=== PATIENT | female | born 1980 | race African-American/Black ===

== ENCOUNTER 2022-03-20 14:07 | Inpatient (IN) | payer MEDICARE, MEDICAID, SELFPAY ==
[2022-03-20 14:15] VITALS: BP 100/70; PULSE 70; O2SAT 100
--- NOTE | 2022-03-20 14:18 | ECG_ITS ---
Test Reason : weakness Blood Pressure : / mmHG Vent. Rate : 085 BPM Atrial Rate : 085 BPM P-R Int : 140 ms QRS Dur : 084 ms QT Int : 368 ms P-R-T Axes : 027 007 002 degrees QTc Int : 437 ms Normal sinus rhythm Normal ECG No previous ECGs available Referred By: Generic ED Physician Electronically Signed By:DYLLAN TAYLOR
[2022-03-20 14:23] VITALS: BP 126/71; PULSE 86; RESP 18; TEMP 36.6; O2SAT 100; BMI 59.5
[2022-03-20 14:38] LABS: Glucose, Whole Blood 108 mg/dL (60-115)
[2022-03-20 14:40] LABS: Basophils Percent Auto 0.5 % (0-2); Eosinophils Absolute Auto 0.1 X10*3/uL (0.0-0.4); Eosinophils Percent Auto 2.2 % (0-4); Hematocrit 36.1 % (37.0-47.0); Hemoglobin 11.4 g/dl (12.0-16.0); Imm Gran Abs Auto 0.02 X10*3/uL (0.00-0.03); Imm Gran Pct Auto 0.4 % (0.0-0.4); Lymphocytes Absolute Auto 2.1 X10*3/uL (1.2-4.9); Lymphocytes Percent Auto 38.8 % (20-40); MANUAL DIFF FLAG NO; Mean Corpuscular HGB Conc 31.6 g/dl (31.0-35.0); Mean Corpuscular Hemoglobin 26.5 pg (27.0-33.0); Mean Corpuscular Volume 83.8 fL (80.0-98.0); Mean Platelet Volume 9.8 fL (9.4-12.3); Monocytes Absolute Auto 0.7 X10*3/uL (0.1-1.2); Monocytes Percent Auto 12.6 % (2-11); Neutrophils Absolute Auto 2.5 x10*3/uL (2.0-8.3); Neutrophils Percent Auto 45.5 % (45-73); Platelet Count 250 X10*3/uL (160-400); Red Blood Count 4.31 X10*6/uL (4.20-5.50); White Blood Count 5.5 X10*3/uL (4.8-10.8)
[2022-03-20 14:52] LABS: COVID-19 Test Negative (Negative)
[2022-03-20 15:08] LABS: Ethanol < 10 mg/dL
[2022-03-20 15:11] LABS: Alanine Aminotransferase 23 U/L (0-31); Albumin Level 4.1 g/dL (3.5-5.0); Alkaline Phosphatase 63 U/L (39-117); Anion Gap 13 (12-20); Aspartate Amino Transferase 19 U/L (5-31); Bilirubin Direct < 0.2 mg/dL (0.0-0.5); Bilirubin Total 0.2 mg/dL (0.0-1.0); Blood Urea Nitrogen 10 mg/dL (9-16); Calcium 8.8 mg/dL (8.4-10.2); Carbon Dioxide 26 mmol/L (22-29); Chloride 105 mmol/L (96-108); Creatinine Clr Calc Pharmacy 105.1; Estimated Glomerular Filt Rate 50; Glucose Random 94 mg/dL (60-115); Potassium 4.2 mmol/L (3.3-5.1); Sodium 140 mmol/L (135-145)
[2022-03-20 15:14] LABS: Troponin-I High Sensitivity < 3.5 ng/L (<3.5-17.0)
--- NOTE | 2022-03-20 16:43 | ED_ITS ---
HPI - General Adult General Chief complaint: General Medical Stated complaint: weakness and dizziness Time Seen by Provider: 03/20/22 16:41 Source: patient and EMS Mode of arrival: EMS Limitations: other (patient acutely psychotic) History of Present Illness HPI narrative: 42-year-old female unclear medical history presents to the emergency department via ems with bizarre affect, telling staff members that she is no longer a psych patient and she wants them to close her case. Initially patient was placed in the waiting room, she ran outside, refusing to come in, she was acutely psychotic so I spoke to this patient convinced her to come inside. 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 She reports that she has infection in her vagina and has had multiple sexual partners, she is concerned for STDs. Warts she was recently at a group home however there is too much structure at that facility so she left. Yesterday patient was at [facility] and was very aggressive and it took 12 staff members to help calmed patient an escort her out of the facility. According to EMS she is very well known for psychiatric emergencies, violent behaviors. Patient reports that she is not on med compliant and has not been taking her medications because she does not like the way the medications of made her feel. She reports palpitations, dizziness and chest discomfort. She tells me she is homeless and has been outside for long periods of time. Denies visual, auditory and tactile hallucinations. Denies SI and HI. Unable to obtain a clear review of systems as patient is acutely psychotic and is going on tangents throughout my history taking. Immediately patient was placed on a Section 12 due to erratically behavior, acute psychosis. Radiation: non-radiation Severity: moderate Quality: stabbing Pain Consistency: constant Relieving factors: none Exacerbating factors: none Associated symptoms: malaise and weakness Related Data Home Medications Medication Instructions Recorded Confirmed No Known Home Meds 03/20/22 03/20/22 Allergies Allergy/AdvReac Type Severity Reaction Status Date / Time No Known Allergies Allergy Verified 03/20/22 14:23 Review of Systems Review of Systems: Constitutional : No Weight loss, No Fever, No Chills, + Fatigue, + Malaise ENT/Mouth : No sore throat, No Rhinorrhea Eyes: No Eye Pain, No Swelling, No Redness Cardiovascular : + Chest Pain, No SOB, No Dyspnea on Exertion, No Orthopnea, No Edema, No Palpitations Respiratory : No Cough, No Sputum, No Wheezing Gastrointestinal : No Nausea, No Vomiting, No Diarrhea, No Constipation, No abdominal Pain, No Hematochezia, No Melena Genitourinary : No Dysuria, No Urinary Frequency, No Hematuria, Musculoskeletal : No joint pain, No Myalgias, No Joint Swelling Skin : No Skin Lesions, No rash Neuro : + Weakness, No Numbness, No Dizziness, No Headache Psych : No Anxiety/Panic, No Depression All other systems reviewed and are negative Yes all other systems are reviewed and are negative [facility] Past Medical History Attestation statement: The following information was validated with the patient. Source: old records reviewed and nursing notes reviewed Social History Social History Patient Tobacco Use Status: Never used Tobacco Use of substances other than those prescribed or required for medical reasons: No Advance Directives: No Advance Directives Information Provided: No Physical Exam ED Vital Signs: Vital Signs - 24 hr 03/20/22 14:23 Temperature 97.9 F Pulse Rate 86 Respiratory Rate 18 Blood Pressure 126/71 Pulse Oximetry 100 Oxygen Delivery Method Room Air BMI result Body Mass Index 59.5 VSS Appearance: Alert.? Oriented X3.? No acute distress. Bizzare behaviors/ affect, speaking rapidly and not making sense Head: Normocephalic, atraumatic, no step-offs or deformities Eyes: Pupils equal, round and reactive to light.? ENT: Pharynx normal.? Neck: Normal inspection.? Neck supple.? CVS: Normal heart rate and rhythm.? Pulses normal.? Respiratory: No respiratory distress.? Breath sounds normal.? Abdomen: Soft and nontender.? Skin: Skin warm and dry.? Normal skin color.? Normal skin turgor.? Extremities: No lower extremity edema.? No calf ttp, negative triston. 5/5 strength to bilateral upper and lower extremities Neuro: Oriented X 3.? No motor deficit.? No sensory deficit. CN 2-12 intact Course Reevaluation(s) Reevaluation #1: Patient requesting prophylaxis treatment for gonorrhea and chlamydia. Educated her on full panel STD testing. CBC within normal limits. Chemistry with no acute findings. Magnesium within normal limits. Troponin negative x2, EKG nonischemic unlikely ACS. UA without infection. Urine toxicology negative. Ethanol negative. COVID negative. Time: 17:59 Reevaluation #2: At this time patient will be placed in physician observation to allow more time for evaluation by the behavioral health team. At time observation was started patient, cooperative no acute distress. Will continue to monitor. Time: 00:12 Medical Decision Making MDM Narrative Medical decision making narrative: 1640 42 yo f presents w/ acute psychosis, non med compliant PE significant for patient being acutely psychotic, speaking rapidly in going on tangents. Plan at this time is medical clearance and evaluation by the behavioral health team. Medical Records Medical records reviewed: Yes I reviewed the patient's medical records. Lab Data Lab results reviewed: Yes I reviewed the patient's lab results. Result diagrams: 03/20/22 14:34 03/20/22 14:34 Labs: Lab Results 03/20/22 03/20/22 03/20/22 Range/Units 14:28 14:33 14:34 WBC 5.5 (4.8-10.8) X10*3/uL RBC 4.31 (4.20-5.50) X10*6/uL Hgb 11.4 L (12.0-16.0) g/dl Hct 36.1 L (37.0-47.0) % MCV 83.8 (80.0-98.0) fL MCH 26.5 L (27.0-33.0) pg MCHC 31.6 (31.0-35.0) g/dl RDW 16.0 (11.0-16.0) % Plt Count 250 (160-400) X10*3/uL MPV 9.8 (9.4-12.3) fL Immature Gran % (Auto) 0.4 (0.0-0.4) % Neut % (Auto) 45.5 (45-73) % Lymph % (Auto) 38.8 (20-40) % [place] % (Auto) 12.6 H (2-11) % Eos % (Auto) 2.2 (0-4) % Baso % (Auto) 0.5 (0-2) % Lymph # (Auto) 2.1 (1.2-4.9) X10*3/uL [place] # (Auto) 0.7 (0.1-1.2) X10*3/uL Eos # (Auto) 0.1 (0.0-0.4) X10*3/uL Baso # (Auto) 0.0 (0.0-0.2) X10*3/uL Abs Immat Gran (auto) 0.02 (0.00-0.03) X10*3/uL Absolute Neuts (auto) 2.5 (2.0-8.3) x10*3/uL Absolute Nucleated RBC 0.000 (0.0-0.012) X10*3/uL Nucleated RBC % (auto) 0.0 (0.0-0.2) /100WBC Sodium (135-145) mmol/L Potassium (3.3-5.1) mmol/L Chloride (96-108) mmol/L Carbon Dioxide (22-29) mmol/L Anion Gap (12-20) BUN (9-16) mg/dL Creatinine (0.5-1.4) mg/dL Estim Creat Clear Calc Estimated GFR POC Glucose 108 (60-115) mg/dL Random Glucose (60-115) mg/dL Calcium (8.4-10.2) mg/dL Magnesium (1.6-2.6) mg/dL Total Bilirubin (0.0-1.0) mg/dL Direct Bilirubin (0.0-0.5) mg/dL AST (5-31) U/L ALT (0-31) U/L Alkaline Phosphatase (39-117) U/L Total Creatine Kinase (26-140) U/L Troponin I High Sens (<3.5-17.0) ng/L Total Protein (6.5-8.0) g/dL Albumin (3.5-5.0) g/dL Urine Color Urine Appearance Urine pH (5.0-8.0) Ur Specific [place] (1.005-1.025) Urine Protein (NEG-TRACE) MG/DL Urine Glucose (UA) (NEG) MG/DL Urine Ketones (NEG) MG/DL Urine Blood (NEG) Urine Nitrite (NEG) Ur Leukocyte Esterase (NEG) Urine Test (NEGATIVE) Urine Opiates Screen (Not Detect) Urine Fentanyl Screen (Not Detect) Ur Barbiturates Screen (Not Detect) Ur Phencyclidine Scrn (Not Detect) Ur Amphetamines Screen (Not Detect) U Benzodiazepines Scrn (Not Detect) Urine Cocaine Screen (Not Detect) U Marijuana (THC) Screen (Not Detect) Ethyl Alcohol mg/dL COVID-19 (DAE) Negative (Negative) COVID-19 Clin Com See Note 03/20/22 03/20/22 03/20/22 Range/Units 14:34 14:34 14:34 WBC (4.8-10.8) X10*3/uL RBC (4.20-5.50) X10*6/uL Hgb (12.0-16.0) g/dl Hct (37.0-47.0) % MCV (80.0-98.0) fL MCH (27.0-33.0) pg MCHC (31.0-35.0) g/dl RDW (11.0-16.0) % Plt Count (160-400) X10*3/uL MPV (9.4-12.3) fL Immature Gran % (Auto) (0.0-0.4) % Neut % (Auto) (45-73) % Lymph % (Auto) (20-40) % [place] % (Auto) (2-11) % Eos % (Auto) (0-4) % Baso % (Auto) (0-2) % Lymph # (Auto) (1.2-4.9) X10*3/uL [place] # (Auto) (0.1-1.2) X10*3/uL Eos # (Auto) (0.0-0.4) X10*3/uL Baso # (Auto) (0.0-0.2) X10*3/uL Abs Immat Gran (auto) (0.00-0.03) X10*3/uL Absolute Neuts (auto) (2.0-8.3) x10*3/uL Absolute Nucleated RBC (0.0-0.012) X10*3/uL Nucleated RBC % (auto) (0.0-0.2) /100WBC Sodium 140 (135-145) mmol/L Potassium 4.2 (3.3-5.1) mmol/L Chloride 105 (96-108) mmol/L Carbon Dioxide 26 (22-29) mmol/L Anion Gap 13 (12-20) BUN 10 (9-16) mg/dL Creatinine 1.19 (0.5-1.4) mg/dL Estim Creat Clear Calc 105.1 Estimated GFR 50 POC Glucose (60-115) mg/dL Random Glucose 94 (60-115) mg/dL Calcium 8.8 (8.4-10.2) mg/dL Magnesium (1.6-2.6) mg/dL Total Bilirubin 0.2 (0.0-1.0) mg/dL Direct Bilirubin < 0.2 (0.0-0.5) mg/dL AST 19 (5-31) U/L ALT 23 (0-31) U/L Alkaline Phosphatase 63 (39-117) U/L Total Creatine Kinase (26-140) U/L Troponin I High Sens < 3.5 (<3.5-17.0) ng/L Total Protein 7.0 (6.5-8.0) g/dL Albumin 4.1 (3.5-5.0) g/dL Urine Color Urine Appearance Urine pH (5.0-8.0) Ur Specific [place] (1.005-1.025) Urine Protein (NEG-TRACE) MG/DL Urine Glucose (UA) (NEG) MG/DL Urine Ketones (NEG) MG/DL Urine Blood (NEG) Urine Nitrite (NEG) Ur Leukocyte Esterase (NEG) Urine Test (NEGATIVE) Urine Opiates Screen (Not Detect) Urine Fentanyl Screen (Not Detect) Ur Barbiturates Screen (Not Detect) Ur Phencyclidine Scrn (Not Detect) Ur Amphetamines Screen (Not Detect) U Benzodiazepines Scrn (Not Detect) Urine Cocaine Screen (Not Detect) U Marijuana (THC) Screen (Not Detect) Ethyl Alcohol < 10 mg/dL COVID-19 (DAE) (Negative) COVID-19 Clin Com 03/20/22 03/20/22 03/20/22 Range/Units 17:00 17:00 17:00 WBC (4.8-10.8) X10*3/uL RBC (4.20-5.50) X10*6/uL Hgb (12.0-16.0) g/dl Hct (37.0-47.0) % MCV (80.0-98.0) fL MCH (27.0-33.0) pg MCHC (31.0-35.0) g/dl RDW (11.0-16.0) % Plt Count (160-400) X10*3/uL MPV (9.4-12.3) fL Immature Gran % (Auto) (0.0-0.4) % Neut % (Auto) (45-73) % Lymph % (Auto) (20-40) % [place] % (Auto) (2-11) % Eos % (Auto) (0-4) % Baso % (Auto) (0-2) % Lymph # (Auto) (1.2-4.9) X10*3/uL [place] # (Auto) (0.1-1.2) X10*3/uL Eos # (Auto) (0.0-0.4) X10*3/uL Baso # (Auto) (0.0-0.2) X10*3/uL Abs Immat Gran (auto) (0.00-0.03) X10*3/uL Absolute Neuts (auto) (2.0-8.3) x10*3/uL Absolute Nucleated RBC (0.0-0.012) X10*3/uL Nucleated RBC % (auto) (0.0-0.2) /100WBC Sodium (135-145) mmol/L Potassium (3.3-5.1) mmol/L Chloride (96-108) mmol/L Carbon Dioxide (22-29) mmol/L Anion Gap (12-20) BUN (9-16) mg/dL Creatinine (0.5-1.4) mg/dL Estim Creat Clear Calc Estimated GFR POC Glucose (60-115) mg/dL Random Glucose (60-115) mg/dL Calcium (8.4-10.2) mg/dL Magnesium (1.6-2.6) mg/dL Total Bilirubin (0.0-1.0) mg/dL Direct Bilirubin (0.0-0.5) mg/dL AST (5-31) U/L ALT (0-31) U/L Alkaline Phosphatase (39-117) U/L Total Creatine Kinase (26-140) U/L Troponin I High Sens (<3.5-17.0) ng/L Total Protein (6.5-8.0) g/dL Albumin (3.5-5.0) g/dL Urine Color YELLOW Urine Appearance CLEAR Urine pH 5.5 (5.0-8.0) Ur Specific [place] >= 1.030 H (1.005-1.025) Urine Protein NEG (NEG-TRACE) MG/DL Urine Glucose (UA) NEG (NEG) MG/DL Urine Ketones 5 (NEG) MG/DL Urine Blood NEG (NEG) Urine Nitrite NEG (NEG) Ur Leukocyte Esterase NEG (NEG) Urine Test NEGATIVE (NEGATIVE) Urine Opiates Screen Not Detected (Not Detect) Urine Fentanyl Screen Not Detected (Not Detect) Ur Barbiturates Screen Not Detected (Not Detect) Ur Phencyclidine Scrn Not Detected (Not Detect) Ur Amphetamines Screen Not Detected (Not Detect) U Benzodiazepines Scrn Not Detected (Not Detect) Urine Cocaine Screen Not Detected (Not Detect) U Marijuana (THC) Screen Not Detected (Not Detect) Ethyl Alcohol mg/dL COVID-19 (DAE) (Negative) COVID-19 Clin Com 03/20/22 03/20/22 03/20/22 Range/Units 17:07 17:07 17:07 WBC (4.8-10.8) X10*3/uL RBC (4.20-5.50) X10*6/uL Hgb (12.0-16.0) g/dl Hct (37.0-47.0) % MCV (80.0-98.0) fL MCH (27.0-33.0) pg MCHC (31.0-35.0) g/dl RDW (11.0-16.0) % Plt Count (160-400) X10*3/uL MPV (9.4-12.3) fL Immature Gran % (Auto) (0.0-0.4) % Neut % (Auto) (45-73) % Lymph % (Auto) (20-40) % [place] % (Auto) (2-11) % Eos % (Auto) (0-4) % Baso % (Auto) (0-2) % Lymph # (Auto) (1.2-4.9) X10*3/uL [place] # (Auto) (0.1-1.2) X10*3/uL Eos # (Auto) (0.0-0.4) X10*3/uL Baso # (Auto) (0.0-0.2) X10*3/uL Abs Immat Gran (auto) (0.00-0.03) X10*3/uL Absolute Neuts (auto) (2.0-8.3) x10*3/uL Absolute Nucleated RBC (0.0-0.012) X10*3/uL Nucleated RBC % (auto) (0.0-0.2) /100WBC Sodium (135-145) mmol/L Potassium (3.3-5.1) mmol/L Chloride (96-108) mmol/L Carbon Dioxide (22-29) mmol/L Anion Gap (12-20) BUN (9-16) mg/dL Creatinine (0.5-1.4) mg/dL Estim Creat Clear Calc Estimated GFR POC Glucose (60-115) mg/dL Random Glucose (60-115) mg/dL Calcium (8.4-10.2) mg/dL Magnesium 2.1 (1.6-2.6) mg/dL Total Bilirubin (0.0-1.0) mg/dL Direct Bilirubin (0.0-0.5) mg/dL AST (5-31) U/L ALT (0-31) U/L Alkaline Phosphatase (39-117) U/L Total Creatine Kinase 221 H (26-140) U/L Troponin I High Sens < 3.5 (<3.5-17.0) ng/L Total Protein (6.5-8.0) g/dL Albumin (3.5-5.0) g/dL Urine Color Urine Appearance Urine pH (5.0-8.0) Ur Specific [place] (1.005-1.025) Urine Protein (NEG-TRACE) MG/DL Urine Glucose (UA) (NEG) MG/DL Urine Ketones (NEG) MG/DL Urine Blood (NEG) Urine Nitrite (NEG) Ur Leukocyte Esterase (NEG) Urine Test (NEGATIVE) Urine Opiates Screen (Not Detect) Urine Fentanyl Screen (Not Detect) Ur Barbiturates Screen (Not Detect) Ur Phencyclidine Scrn (Not Detect) Ur Amphetamines Screen (Not Detect) U Benzodiazepines Scrn (Not Detect) Urine Cocaine Screen (Not Detect) U Marijuana (THC) Screen (Not Detect) Ethyl Alcohol < 10 mg/dL COVID-19 (DAE) (Negative) COVID-19 Clin Com Critical Care Time Critical Care Time Critical Care Time: No Discharge Plan Discharge Clinical Impression: Psychosis Patient Disposition: Still a Patient Prescriptions: No Action No Known Home Meds
[2022-03-20 17:09] LABS: Appearance Urine CLEAR; Color Urine YELLOW; Glucose Urine UA NEG (NEG); Leukocyte Esterase Urine NEG (NEG); Nitrite Urine NEG (NEG); PH 5.5 (5.0-8.0); Specific Gravity - Urine >= 1.030 (1.005-1.025); Urine Blood NEG (NEG); Urine Ketones 5 MG/DL (NEG); Urine Protein NEG (NEG-TRACE)
[2022-03-20 17:10] LABS: UPreg QC Valid YES; Urine Pregnancy NEGATIVE (NEGATIVE)
[2022-03-20] MEDS: OLANZapine 10 MG TABLET PO (17:13)
--- NOTE | 2022-03-20 17:14 | PHA.MEDREC ---
NO KNOWN MEDICATIONS. PATIENT IS NOT COOPERATIVE AT MOMENT, RN QUESTIONED PATIENT IF THERE IS A PHARMACY WE COULD CALL HAVE NOT GOTTEN ANY INFO Pharmacy Consult ? Medication Reconciliation Pharmacy has completed the medication reconciliation.
[2022-03-20 17:17] LABS: Amphetamine Screen Urine Not Detected (Not Detect); Barbiturates, Urine Not Detected (Not Detect); Benzodiazepines Screen Urine Not Detected (Not Detect); Cannabinoid Screen Urine Not Detected (Not Detect); Cocaine Screen Urine Not Detected (Not Detect); Fentanyl, urine Not Detected (Not Detect); Opiate Screen Urine Not Detected (Not Detect); Phencyclidine Screen Urine Not Detected (Not Detect)
[2022-03-20] MEDS: cefTRIAXone sodium 500 MG, Lidocaine HCl 1 % MPF 1 ML IM (17:28)
[2022-03-20 17:35] LABS: Ethanol < 10 mg/dL
[2022-03-20 17:37] LABS: Magnesium 2.1 mg/dL (1.6-2.6)
[2022-03-20 17:43] LABS: Troponin-I High Sensitivity < 3.5 ng/L (<3.5-17.0)
--- NOTE | 2022-03-20 18:02 | PC.NURSE ---
PT ARRIVES APPEARING DISHEVELED, STATES SHE HAS BEEN HOMELESS FOR 2 YEARS. HYPERVERBAL, RESPONDING TO INTERNAL STIMULI, EASILY REDIRECTED. STATES SHE HAS NOT TAKEN ANY MEDICATIONS IN YRS. STATES DISTANT HX OF SELF HARM, NO CURRENT SI/HI. AGREEABLE TO ALL INTERVENTIONS.
--- NOTE | 2022-03-20 18:27 | PC.NURSE ---
[facility] CONTACTED, REFERRAL FORM COMPLETED
[2022-03-20] MEDS: diphenhydrAMINE HCL 25 MG TABLET 50 MG PO (18:40)
--- NOTE | 2022-03-20 23:48 | PC.NURSE ---
PATIENT REFUSED CHEST X-RAY. PATIENT STATED MONDAY MORNING. WILL ASK AGAIN IN THE MORNING.
--- NOTE | 2022-03-21 01:30 | PC.NURSE ---
Patient is in bed appears sleeping, no distress observed/reported at this time, patient was assessed by [facility], patient engaged well, disposition pending, jose juan follow up with [facility] in the morning, currently not on any medication, patient is being treated for STD prophylactically, behavior appropriate and non concerning, will continue to monitor.
--- NOTE | 2022-03-21 01:44 | PC.NURSE ---
Patient refused for X-ray times 2, patient reported she will do it in the morning, X-ray department made aware.
[2022-03-21 06:48] VITALS: BP 142/70; PULSE 80; RESP 16; TEMP 37.3; O2SAT 100
--- NOTE | 2022-03-21 07:19 | PC.NURSE ---
patient appears to remain asleep at present respirations are even and unlabored patient appears in no distress.
--- NOTE | 2022-03-21 11:32 | PC.NURSE ---
patients mother called, patient gave consent for t/w to talk to mother but declined to talk to mother herself. patients mother asked again, maricarmenless handset ws brought to room and client declined to engage with mother.
--- NOTE | 2022-03-21 16:26 | PC.NURSE ---
pt sleeping respirations even and unlabored.
[2022-03-21 17:56] VITALS: BP 144/86; PULSE 68; RESP 16; TEMP 36.9; O2SAT 100
[2022-03-22 03:01] VITALS: BP 150/86; PULSE 73; RESP 17; TEMP 36.4; O2SAT 100
--- NOTE | 2022-03-22 06:25 | PC.NURSE ---
Patient slept through the night, no distress observed/reported, behavior non concerning at this time, disposition per [facility] is section 12 inpatient bed search, VSS, appetite adequate, mood expansive, will continue to monitor.
--- NOTE | 2022-03-22 07:22 | PC.NURSE ---
patient appears to remain asleep at present respirations are even and unlabored patient appears in no distress
[2022-03-22 08:51] VITALS: BP 126/56; PULSE 82; RESP 13; TEMP 37.3; O2SAT 100
[2022-03-22 11:19] LABS: IDNOW Serial# 55D5AD1C
[2022-03-22 11:20] LABS: COVID-19 Test Negative (Negative)
[2022-03-22 16:01] VITALS: BP 135/72; PULSE 72; RESP 16; TEMP 36.4; O2SAT 100
[2022-03-22 16:46] VITALS: BP 135/72; PULSE 72; RESP 16; TEMP 36.4; O2SAT 100
[2022-03-22 18:00] VITALS: BP 132/78; PULSE 89; RESP 16; TEMP 36.6; O2SAT 99
[2022-03-22] MEDS: HaloperidoL 5 MG TABLET PO ×3 (18:13→20:07)
[2022-03-22] MEDS: Benztropine Mesylate 0.5 MG TABLET PO ×2 (18:13→18:19)
[2022-03-22] MEDS: Milk of Magnesia 30 ML ORAL.SUSP PO (20:17)
--- NOTE | 2022-03-22 21:44 | PC.ADMIT ---
Pt is a 42 year old -[place] woman admitted on CV for delusion and disorganized thoughts. Pt is alert and oriented X3, VSS, covid negative, Tox screen negative. Pt states that she is planning to go back to school to become a doctor, a nurse a physician executive marketing assistant. Pt appears disheveled, poor eye contact, calm and cooperative, able to answer questions. Speech is pressured, with high tone. Insight, judgment and impulses are poor, flat affect Pt reports Auditory hallucinations of noises. Pt denies VH, Denies SI and HI. Pt describes mood as bright and happy. denies depression and anxiety. Pt reports that she arrived to the ED because she was feeling overwhelmed and dizzy . Pt reports she wants to talk to her provider and see if she can get help getting into a program. Pt requests for OBGYN consult. Provider made aware, admission orders obtained.
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
[2022-03-22] MEDS: traZODone HCL 50 MG TABLET PO (22:36)
[2022-03-23] MEDS: hydrOXYzine HCL 25 MG TABLET PO (00:25)
[2022-03-23] MEDS: traZODone HCL 50 MG TABLET PO (00:25)
[2022-03-23] MEDS: OLANZapine 5 MG TABLET PO ×2 (00:25→11:10)
[2022-03-23] MEDS: LORazepam 1 MG TABLET 2 MG PO (02:34)
[2022-03-23] MEDS: diphenhydrAMINE HCL 25 MG TABLET 50 MG PO (02:34)
[2022-03-23] MEDS: HaloperidoL 5 MG TABLET PO (02:34)
[2022-03-23 06:00] VITALS: BP 114/57; PULSE 86; TEMP 37; O2SAT 98
[2022-03-23 09:10] LABS: Estimated Average Glucose 117 mg/dL; Hemoglobin A1c % 5.7 %
[2022-03-23 09:33] LABS: Cholesterol 184 mg/dL; HDL Cholesterol 63 mg/dL; LDL Cholesterol Calculated 103 mg/dl; Triglycerides 91 mg/dL
--- NOTE | 2022-03-23 10:45 | P.PNPSI_ITS ---
Subjective Subjective Date of Service: 03/23/22 Reason For Visit: psychotic Subjective Notes: Sierra Warning Interim History: Patient lying in bed with eyes closed. Calm and pleasant as communications writer approached. Patient says that she is no longer hearing voices with the medication and she says she slept well last night. Project Development Leader could not elicit any paranoid thinking however she is made some bizarre statements to staff. She does not want to take Haldol but agrees to take Zyprexa. She is not sure of the past dose she was (communications writer cannot find it in prescription hx). She said she would like it mostly in the evening time since it makes her tired. She denies any SI or HI. She says she is on an antibiotic for a vaginal infection, which she is. Mental Status Exam Mental Status Exam Narrative: Pt is alert and oriented; behavior is mostly cooperative and calm; patient is not in distress, lying in bed with eyes closed; dressed in hospital attire, malodorous; mood is described as good; odd affect, keeping eyes close while talking; no contact appropriate; Speech is normal rate, volume and prosody and not pressured; no psychomotor agitation/retardation present; thought process is goal directed but concrete; Thought content w/out SI/HI; denies AVH; Patients insight and judgment are impaired. Diagnostics Vital Signs (24Hr): Vital Signs - 24 hr 03/22/22 16:01 03/22/22 16:46 03/22/22 18:00 Temperature 97.6 F 97.6 F 97.8 F Pulse Rate 72 72 89 Respiratory Rate 16 16 16 Blood Pressure 135/72 135/72 132/78 Pulse Oximetry 100 100 99 Oxygen Delivery Method Room Air Room Air Room Air BMI result Body Mass Index 59.5 Labs Results: 03/20/22 14:34 03/20/22 14:34 Labs: Laboratory Results - last 48 hr 03/22/22 03/23/22 03/23/22 10:53 08:09 08:09 Estimat Average Glucose 117 Hemoglobin A1c % 5.7 Triglycerides 91 Cholesterol 184 LDL Cholesterol, Calc 103 HDL Cholesterol 63 COVID-19 (DAE) Negative COVID-19 Clin Com See Note Medications Medications Current Medications Acetaminophen (Acetaminophen 325 Mg Tablet) 650 mg PO Q6H PRN PRN Reason: Headache/Pain Mild Scale (1-3) Al Hydroxide/Mg Hydroxide (Magnesium Hydrox/Alum Hydrox 30 Ml Oral.Susp) 30 ml PO Q6H PRN PRN Reason: Heartburn/Nausea Benztropine Mesylate (Benztropine Mesylate 0.5 Mg Tablet) 0.5 mg PO TID PRN PRN Reason: dystonia/EPS Last Admin: 03/22/22 18:19 Dose: 0.5 mg Diphenhydramine HCl (Diphenhydramine Hcl 25 Mg Tablet) 50 mg PO Q4H PRN PRN Reason: agitation Last Admin: 03/23/22 02:34 Dose: 50 mg Doxycycline Hyclate (Doxycycline Hyclate 100 Mg Tablet) 100 mg PO BID GENOVEVA Last Admin: 03/22/22 20:07 Dose: 100 mg Haloperidol (Haloperidol 5 Mg Tablet) 5 mg PO Q4H PRN PRN Reason: agitation Last Admin: 03/23/22 02:34 Dose: 5 mg Hydroxyzine HCl (Hydroxyzine Hcl 25 Mg Tablet) 25 mg PO Q6H PRN PRN Reason: Anxiety Last Admin: 03/23/22 00:25 Dose: 25 mg Ibuprofen (Ibuprofen 600 Mg Tablet) 600 mg PO Q6H PRN PRN Reason: mod-severe pain Lorazepam (Lorazepam 1 Mg Tablet) 2 mg PO Q4H PRN PRN Reason: agitation Last Admin: 03/23/22 02:34 Dose: 2 mg Magnesium Hydroxide (Milk Of Magnesia 30 Ml Oral.Susp) 30 ml PO DAILY PRN PRN Reason: Constipation Last Admin: 03/22/22 20:17 Dose: 30 ml Nicotine Polacrilex (Nicotine Polacrilex 2 Mg Gum) 4 mg BUCCAL Q2H PRN PRN Reason: Nicotine Cravings Olanzapine (Olanzapine 5 Mg Tablet) 5 mg PO BID PRN PRN Reason: anxiety, psychosis Last Admin: 03/23/22 00:25 Dose: 5 mg Olanzapine (Olanzapine 5 Mg Tablet) 5 mg PO ONCE ONE Stop: 03/23/22 10:42 Olanzapine (Olanzapine 10 Mg Tablet) 10 mg PO BID [place]A Polyethylene Glycol (Polyethylene Glycol 3350 17 Gm Powd.Pack) 17 gm PO BID [place]A Trazodone HCl (Trazodone Hcl 50 Mg Tablet) 50 mg PO BEDTIME PRN PRN Reason: Insomnia Last Admin: 03/23/22 00:25 Dose: 50 mg Allergies Allergies Allergy/AdvReac Type Severity Reaction Status Date / Time No Known Allergies Allergy Verified 03/20/22 14:23 Assessment & Plan Assessment & Plan (1) Schizophrenia, chronic condition: Status: Acute Code(s): F20.9 - Schizophrenia, unspecified Plan Stefania is a 42 y.o. Female who carries a dx of schizophrenia vs. schizoaffective disorder. She presented to [facility] ED on 03/20/2022 with bizarre affect, acutely psychotic i.e. told ED staff that the [place] Gods are out to get her, her legs are infected with HIV, she is using poisoned shampoo that is making her hair fall off, and she has infection in her vagina. She was given doxycycline as prophylaxis for STIs, no testing done in ED. Pt is homeless, recently at [facility].? Per ED note, pt is known to EMS for psychiatric emergencies and aggressive behaviors. She is currently non-adherent on medications, says she does not like how they make her feel.?Hx of multiple psych admissions. 03/23 patient reports that auditory hallucinations have resolved with medications; she says she slept well. She is disorganized, malodorous and does not open her eyes at all while talking, lying in bed most of the day; denies depression SI or HI. Does not seem to be a clear historian however and collateral will help guide treatment Plan: Q15 min safety checks, CV START Zyprexa 10 mg bedtime (gave 1 time dose of 5 mg in the a.m.); will titrate as needed Monitor response to medications. Monitor for safety in the milieu. Discharge on stabilization. Patient seen. Chart reviewed. Discussed with team. Obtain collateral contact info?as needed I spent minutes with the patient and/or on the patient floor today, greater than?50% of which was spent counseling/coordinating care. Patient educated on: medication risk/benefits Informed Consent: understands and further education needed Reason for contiued inpatient stay Substantial Risk for: rapid decompensation
[2022-03-23 21:15] VITALS: BP 125/73; PULSE 89; TEMP 36.9
[2022-03-23] MEDS: polyethylene glycoL 3350 17 GM POWD.PACK PO (21:16)
--- NOTE | 2022-03-24 10:25 | HO.PSYCHPN ---
Subjective Subjective Date of Service: 03/24/22 Reason For Visit: psychotic Interim History: Patient says she slept well. Patient is pleasant and friendly. Thought process very concrete She does not want to take Zyprexa anymore however because she says it makes her too tired. She said she will take Risperdal instead. Patient reports that auditory hallucinations are gone since take medications in the hospital. She continues to deny any delusional thinking and completely denies having made any bizarre statements recorded on admission. Patient says she used to live in the [facility] with her mom; she thinks she would like to return there and asks if she can be helped to do so. Gave permission to both service writer and professor of social work to call her mom and discuss options. She denies any SI or HI and says she would like to leave the hospital soon, that she is fine and does not need to be on a psychiatric unit. Human Resources Consultant asked about her concerns regarding HIV and she denies that she has any concerns and does not want test. Mental Status Exam Mental Status Exam Narrative: Pt is alert and oriented; behavior is cooperative, friendly and calm; patient is not in distress, sits up in bed , talking with service writer and professor of social work with good eye contact; dressed in hospital attire, good hygiene and showered today; mood is described as good and affect congruent; Speech is normal rate, volume and prosody and not pressured; no psychomotor agitation/retardation present; thought process is goal directed but concrete; Thought content is on discharge; denies any SI or HI; denies AVH; denies any delusional or paranoid thinking and none solicited; Patients insight and judgment are impaired but likely adequate. Diagnostics Vital Signs (24Hr): Vital Signs - 24 hr 03/23/22 21:15 Temperature 98.4 F Pulse Rate 89 Blood Pressure 125/73 BMI result Body Mass Index 59.5 Labs Results: 03/20/22 14:34 03/20/22 14:34 Labs: Laboratory Results - last 48 hr 03/22/22 03/23/22 03/23/22 10:53 08:09 08:09 Estimat Average Glucose 117 Hemoglobin A1c % 5.7 Triglycerides 91 Cholesterol 184 LDL Cholesterol, Calc 103 HDL Cholesterol 63 COVID-19 (DAE) Negative COVID-19 Clin Com See Note Medications Medications Current Medications Acetaminophen (Acetaminophen 325 Mg Tablet) 650 mg PO Q6H PRN PRN Reason: Headache/Pain Mild Scale (1-3) Al Hydroxide/Mg Hydroxide (Magnesium Hydrox/Alum Hydrox 30 Ml Oral.Susp) 30 ml PO Q6H PRN PRN Reason: Heartburn/Nausea Benztropine Mesylate (Benztropine Mesylate 0.5 Mg Tablet) 0.5 mg PO TID PRN PRN Reason: dystonia/EPS Last Admin: 03/22/22 18:19 Dose: 0.5 mg Diphenhydramine HCl (Diphenhydramine Hcl 25 Mg Tablet) 50 mg PO Q4H PRN PRN Reason: agitation Last Admin: 03/23/22 02:34 Dose: 50 mg Doxycycline Hyclate (Doxycycline Hyclate 100 Mg Tablet) 100 mg PO BID [facility] Last Admin: 03/24/22 09:07 Dose: 100 mg Haloperidol (Haloperidol 5 Mg Tablet) 5 mg PO Q4H PRN PRN Reason: agitation Last Admin: 03/23/22 02:34 Dose: 5 mg Hydroxyzine HCl (Hydroxyzine Hcl 25 Mg Tablet) 25 mg PO Q6H PRN PRN Reason: Anxiety Last Admin: 03/23/22 00:25 Dose: 25 mg Ibuprofen (Ibuprofen 600 Mg Tablet) 600 mg PO Q6H PRN PRN Reason: mod-severe pain Lorazepam (Lorazepam 1 Mg Tablet) 2 mg PO Q4H PRN PRN Reason: agitation Last Admin: 03/23/22 02:34 Dose: 2 mg Magnesium Hydroxide (Milk Of Magnesia 30 Ml Oral.Susp) 30 ml PO DAILY PRN PRN Reason: Constipation Last Admin: 03/22/22 20:17 Dose: 30 ml Nicotine Polacrilex (Nicotine Polacrilex 2 Mg Gum) 4 mg BUCCAL Q2H PRN PRN Reason: Nicotine Cravings Olanzapine (Olanzapine 5 Mg Tablet) 5 mg PO BID PRN PRN Reason: anxiety, psychosis Last Admin: 03/23/22 00:25 Dose: 5 mg Olanzapine (Olanzapine 10 Mg Tablet) 10 mg PO BEDTIME [facility]A Last Admin: 03/23/22 21:20 Dose: Not Given Polyethylene Glycol (Polyethylene Glycol 3350 17 Gm Powd.Pack) 17 gm PO BID GENOVEVA Last Admin: 03/24/22 09:10 Dose: Not Given Trazodone HCl (Trazodone Hcl 50 Mg Tablet) 50 mg PO BEDTIME PRN PRN Reason: Insomnia Last Admin: 03/23/22 00:25 Dose: 50 mg Allergies Allergies Allergy/AdvReac Type Severity Reaction Status Date / Time No Known Allergies Allergy Verified 03/20/22 14:23 Assessment & Plan Assessment & Plan (1) Schizophrenia, chronic condition: Status: Acute Code(s): F20.9 - Schizophrenia, unspecified Plan Stefania is a 42 y.o. Female who carries a dx of schizophrenia vs. schizoaffective disorder. She presented to [facility] on 03/20/2022 with bizarre affect, acutely psychotic i.e. told ED staff that the [place] Gods are out to get her, her legs are infected with HIV, she is using poisoned shampoo that is making her hair fall off, and she has infection in her vagina. She was given doxycycline as prophylaxis for STIs, no testing done in ED. Pt is homeless, recently at [facility].? Per ED note, pt is known to EMS for psychiatric emergencies and aggressive behaviors. She is currently non-adherent on medications, says she does not like how they make her feel.?Hx of multiple psych admissions. 03/23 patient reports that auditory hallucinations have resolved with medications; she says she slept well. She is disorganized, malodorous and does not open her eyes at all while talking, lying in bed most of the day; denies depression SI or HI. Does not seem to be a clear historian however and collateral will help guide treatment 03/24 patient reports he is in a good mood, sleeping well and denies any AH; wants Risperdal instead of Zyprexa which she has been on before. Patient is more organized, showered today, sitting up and talking with service writer and professor of social work with good eye contact. Patient does not have insight into her recent behaviors behaviors that resulted in her coming to the emergency room, however on the unit she has been calm, pleasant and polite and and overall appropriate. She says she would like discharge and help getting back to [place] where her mother lives. Patient asked for and signed a 3 day notice, filled out on her own without any problems, including the date. Plan: Q15 min safety checks, Three day notice Start Risperdal 2 mg q.h.s. (patient has been on before and asked for this med now.) Discontinue Zyprexa (does not want) Patient has history of being on metformin however current hemoglobin A1c 5.7 Monitor response to medications. Monitor for safety in the milieu. Discharge on stabilization. Patient seen. Chart reviewed. Discussed with team. Obtain collateral contact info?as needed I spent minutes with the patient and/or on the patient floor today, greater than?50% of which was spent counseling/coordinating care. Patient educated on: diagnosis and medication risk/benefits Informed Consent: understands, does not understand and further education needed Reason for contiued inpatient stay Substantial Risk for: stable for discharge
[2022-03-24 16:20] VITALS: BP 152/81; PULSE 102; TEMP 36.6; O2SAT 98
[2022-03-24] MEDS: risperiDONE 2 MG TABLET PO (20:55)
[2022-03-24] MEDS: polyethylene glycoL 3350 17 GM POWD.PACK PO (20:55)
[2022-03-25 06:00] VITALS: BP 121/78; PULSE 92; RESP 16; TEMP 36.7; O2SAT 98
[2022-03-25] MEDS: polyethylene glycoL 3350 17 GM POWD.PACK PO (09:07)
--- NOTE | 2022-03-25 15:09 | P.PNPSI_ITS ---
Subjective Subjective Date of Service: 03/25/22 Reason For Visit: psychotic Interim History: pt friendly, calm. She says she is in a good mood and that auditory hallucinations remain eliminated. Patient says she slept well last night. She changed her mind and no longer wants to go to [place]. She said she saw an advertisement on TV last night about [place] and wants to go. According to her mother, patient has been traveling around to various locations for years and has been able to navigate and keep herself relatively safe doing so on her own. Patient said that she would like to discharge Monday at which time she will go back to the [facility] and wait for her check; then she will Likely buy a bus ticket. Patient rambles a bit about her time in the [place] and some history and it is little hard to understand. But she remains able to be interrupted and have a goal oriented/linear conversation. Patient Referenced her behavior just prior to this admission she was feeling Lonely and made some sexual remarks to team otr truck driver; she also said she cussed people out. Patient says she does not know why, she was just upset and feeling that way at the time; happens from time to time. Patient does not see this as connected with any psychiatric illness; however she does agree that the medications are helpful for eliminating auditory hallucinations and thus wants to continue Patient said Risperdal as helpful and she wants to continue. She does not have money to order picker scripts for it however. She agrees to convert to long-acting injectable. Shrimp Cleaner discussed history of being on metformin but explained how though her A1c is WNL and she said she was only on metformin in the past to help with weight Loss but it was not effective so she stopped. Mental Status Exam Mental Status Exam Narrative: Pt is alert and oriented; behavior is cooperative, friendly and calm; patient is not in distress; dressed in hospital attire, unkempt hair, but good hygiene; ; mood is described as good and affect congruent, bright; Speech is normal rate, volume and prosody and not pressured; no psychomotor agitation/retardation present; thought process is goal directed; can also be quite circumstantial. Also concrete; Thought content is on traveling, plans for future; denies any SI or HI; denies AVH; denies any delusional or paranoid thinking and none solicited; Patients insight and judgment are impaired but adequate and likely at baseline. Diagnostics Vital Signs (24Hr): Vital Signs - 24 hr 03/24/22 16:20 03/25/22 06:00 Temperature 98 F 98.1 F Pulse Rate 102 H 92 Respiratory Rate 16 Blood Pressure 152/81 H 121/78 Pulse Oximetry 98 98 BMI result Body Mass Index 59.5 Labs Results: 03/20/22 14:34 03/20/22 14:34 Medications Medications Current Medications Acetaminophen (Acetaminophen 325 Mg Tablet) 650 mg PO Q6H PRN PRN Reason: Headache/Pain Mild Scale (1-3) Al Hydroxide/Mg Hydroxide (Magnesium Hydrox/Alum Hydrox 30 Ml Oral.Susp) 30 ml PO Q6H PRN PRN Reason: Heartburn/Nausea Benztropine Mesylate (Benztropine Mesylate 0.5 Mg Tablet) 0.5 mg PO TID PRN PRN Reason: dystonia/EPS Last Admin: 03/22/22 18:19 Dose: 0.5 mg Diphenhydramine HCl (Diphenhydramine Hcl 25 Mg Tablet) 50 mg PO Q4H PRN PRN Reason: agitation Last Admin: 03/23/22 02:34 Dose: 50 mg Doxycycline Hyclate (Doxycycline Hyclate 100 Mg Tablet) 100 mg PO BID [facility] Last Admin: 03/25/22 09:08 Dose: 100 mg Haloperidol (Haloperidol 5 Mg Tablet) 5 mg PO Q4H PRN PRN Reason: agitation Last Admin: 03/23/22 02:34 Dose: 5 mg Hydroxyzine HCl (Hydroxyzine Hcl 25 Mg Tablet) 25 mg PO Q6H PRN PRN Reason: Anxiety Last Admin: 03/23/22 00:25 Dose: 25 mg Ibuprofen (Ibuprofen 600 Mg Tablet) 600 mg PO Q6H PRN PRN Reason: mod-severe pain Lorazepam (Lorazepam 1 Mg Tablet) 2 mg PO Q4H PRN PRN Reason: agitation Last Admin: 03/23/22 02:34 Dose: 2 mg Magnesium Hydroxide (Milk Of Magnesia 30 Ml Oral.Susp) 30 ml PO DAILY PRN PRN Reason: Constipation Last Admin: 03/22/22 20:17 Dose: 30 ml Nicotine Polacrilex (Nicotine Polacrilex 2 Mg Gum) 4 mg BUCCAL Q2H PRN PRN Reason: Nicotine Cravings Polyethylene Glycol (Polyethylene Glycol 3350 17 Gm Powd.Pack) 17 gm PO BID [facility]A Last Admin: 03/25/22 09:07 Dose: 17 gm Risperidone (Risperidone 2 Mg Tablet) 2 mg PO BEDTIME GENOVEVA Last Admin: 03/24/22 20:55 Dose: 2 mg Trazodone HCl (Trazodone Hcl 50 Mg Tablet) 50 mg PO BEDTIME PRN PRN Reason: Insomnia Last Admin: 03/23/22 00:25 Dose: 50 mg Allergies Allergies Allergy/AdvReac Type Severity Reaction Status Date / Time No Known Allergies Allergy Verified 03/20/22 14:23 Assessment & Plan Assessment & Plan (1) Schizophrenia, chronic condition: Status: Acute Code(s): F20.9 - Schizophrenia, unspecified Plan Stefania is a 42 y.o. Female who carries a dx of schizophrenia vs. schizoaffective disorder. She presented to [facility] on 03/20/2022 with bizarre affect, acutely psychotic i.e. told ED staff that the [place] Gods are out to get her, her legs are infected with HIV, she is using poisoned shampoo that is making her hair fall off, and she has infection in her vagina. She was given doxycycline as prophylaxis for STIs, no testing done in ED. Pt is homeless, recently at [facility].? Per ED note, pt is known to EMS for psychiatric emergencies and aggressive behaviors. She is currently non-adherent on medications, says she does not like how they make her feel.?Hx of multiple [facility] admissions. 03/23 patient reports that auditory hallucinations have resolved with medications; she says she slept well. She is disorganized, malodorous and does not open her eyes at all while talking, lying in bed most of the day; denies depression SI or HI. Does not seem to be a clear historian however and collateral will help guide treatment 03/24 patient reports he is in a good mood, sleeping well and denies any AH; wants Risperdal instead of Zyprexa which she has been on before. Patient is more organized, showered today, sitting up and talking with commercial loan underwriter and social studies teacher with good eye contact. Patient does not have insight into her recent behaviors behaviors that resulted in her coming to the emergency room, however on the unit she has been calm, pleasant and polite and and overall appropriate. She says she would like discharge and help getting back to [place] where her mo ther lives. Patient asked for and signed a 3 day notice, filled out on her own without any problems, including the date. 03/25 Remains in good mood, without auditory hallucinations saying they remain resolved. Friendly and polite with appropriate behaviors with peers and staff. Patient agrees to continue with Risperdal and agrees to get a long-acting injectable. Otherwise she would like to discharge Monday with plans to travel. Her mother says this is patient's baseline and that she has been Travel all over the place on her own For years and is able to take care of herself. Patient's plan is to [facility] back [facility] and wait for her disability check; she says she likes the intermediate and people are friendly there. She sometimes talks about wanting to go to nursing school or medical school and asks for literature regarding these interests and her thought process can intermittently gets circumstantial and pressured; however she is interruptible and able to carry on a linear/goal oriented conversation and is overall with organized behavior and speech. Plan: Q15 min safety checks, Three day notice continue Risperdal 2 mg q.h.s. (patient has been on before and asked for this med now.) Likely switch to invega sustenna Discontinue Zyprexa (does not want) Patient has history of being on metformin however current hemoglobin A1c 5.7 Monitor response to medications. Monitor for safety in the milieu. Discharge on stabilization. Patient seen. Chart reviewed. Discussed with team. Obtain collateral contact info?as needed I spent minutes with the patient and/or on the patient floor today, greater than?50% of which was spent counseling/coordinating care. Patient educated on: medication risk/benefits Informed Consent: understands Reason for contiued inpatient stay Substantial Risk for: stable for discharge
[2022-03-25 18:00] VITALS: BP 132/82; PULSE 99; RESP 16; TEMP 36.5; O2SAT 98
[2022-03-25] MEDS: risperiDONE 2 MG TABLET PO (19:38)
[2022-03-26 06:35] VITALS: BP 123/77; PULSE 74; RESP 18; TEMP 36.6; O2SAT 99
[2022-03-26] MEDS: polyethylene glycoL 3350 17 GM POWD.PACK PO (09:31)
[2022-03-26] MEDS: Acetaminophen 325 MG TABLET 650 MG PO (09:33)
--- NOTE | 2022-03-26 16:14 | HO.PSYCHPN ---
Subjective Subjective Date of Service: 03/26/22 Reason For Visit: psychotic Interim History: Patient reports that she is doing well, good mood; AH remains resolved. Patient would like to discharge Monday. At she did not want to take doxycycline and complaining of some nausea but later said it resolved and she took it. Agrees to long-acting injectable. Mental Status Exam Mental Status Exam Narrative: Pt is alert and oriented; behavior is cooperative, friendly and calm; patient is not in distress; dressed in hospital attire, unkempt hair, but good hygiene; ; mood is described as good and affect congruent, bright; Speech is normal rate, volume and prosody and not pressured; no psychomotor agitation/retardation present; thought process is goal directed; can also be quite circumstantial. Also concrete; Thought content is on traveling, plans for future; denies any SI or HI; denies AVH; denies any delusional or paranoid thinking and none solicited; Patients insight and judgment are impaired but adequate and likely at baseline. Diagnostics Vital Signs (24Hr): Vital Signs - 24 hr 03/25/22 18:00 03/26/22 06:35 Temperature 97.7 F 98 F Pulse Rate 99 74 Respiratory Rate 16 18 Blood Pressure 132/82 123/77 Pulse Oximetry 98 99 Oxygen Delivery Method Room Air Room Air BMI result Body Mass Index 59.5 Labs Results: 03/20/22 14:34 03/20/22 14:34 Medications Medications Current Medications Acetaminophen (Acetaminophen 325 Mg Tablet) 650 mg PO Q6H PRN PRN Reason: Headache/Pain Mild Scale (1-3) Last Admin: 03/26/22 09:33 Dose: 650 mg Al Hydroxide/Mg Hydroxide (Magnesium Hydrox/Alum Hydrox 30 Ml Oral.Susp) 30 ml PO Q6H PRN PRN Reason: Heartburn/Nausea Benztropine Mesylate (Benztropine Mesylate 0.5 Mg Tablet) 0.5 mg PO TID PRN PRN Reason: dystonia/EPS Last Admin: 03/22/22 18:19 Dose: 0.5 mg Diphenhydramine HCl (Diphenhydramine Hcl 25 Mg Tablet) 50 mg PO Q4H PRN PRN Reason: agitation Last Admin: 03/23/22 02:34 Dose: 50 mg Doxycycline Hyclate (Doxycycline Hyclate 100 Mg Tablet) 100 mg PO BID GENOVEVA Last Admin: 03/26/22 11:00 Dose: 100 mg Haloperidol (Haloperidol 5 Mg Tablet) 5 mg PO Q4H PRN PRN Reason: agitation Last Admin: 03/23/22 02:34 Dose: 5 mg Hydroxyzine HCl (Hydroxyzine Hcl 25 Mg Tablet) 25 mg PO Q6H PRN PRN Reason: Anxiety Last Admin: 03/23/22 00:25 Dose: 25 mg Ibuprofen (Ibuprofen 600 Mg Tablet) 600 mg PO Q6H PRN PRN Reason: mod-severe pain Lorazepam (Lorazepam 1 Mg Tablet) 2 mg PO Q4H PRN PRN Reason: agitation Last Admin: 03/23/22 02:34 Dose: 2 mg Magnesium Hydroxide (Milk Of Magnesia 30 Ml Oral.Susp) 30 ml PO DAILY PRN PRN Reason: Constipation Last Admin: 03/22/22 20:17 Dose: 30 ml Nicotine Polacrilex (Nicotine Polacrilex 2 Mg Gum) 4 mg BUCCAL Q2H PRN PRN Reason: Nicotine Cravings Paliperidone Palmitate (Paliperidone Palmitate 234 Mg/1.5 Ml Syringe) 234 mg IM Q30D [facility] Polyethylene Glycol (Polyethylene Glycol 3350 17 Gm Powd.Pack) 17 gm PO BID [facility] Last Admin: 03/26/22 09:31 Dose: 17 gm Risperidone (Risperidone 2 Mg Tablet) 2 mg PO BEDTIME [facility] Last Admin: 03/25/22 19:38 Dose: 2 mg Trazodone HCl (Trazodone Hcl 50 Mg Tablet) 50 mg PO BEDTIME PRN PRN Reason: Insomnia Last Admin: 03/23/22 00:25 Dose: 50 mg Allergies Allergies Allergy/AdvReac Type Severity Reaction Status Date / Time No Known Allergies Allergy Verified 03/20/22 14:23 Assessment & Plan Assessment & Plan (1) Schizophrenia, chronic condition: Status: Acute Code(s): F20.9 - Schizophrenia, unspecified Plan Stefania is a 42 y.o. Female who carries a dx of schizophrenia vs. schizoaffective disorder. She presented to [facility] on 03/20/2022 with bizarre affect, acutely psychotic i.e. 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 She was given doxycycline as prophylaxis for STIs, no testing done in ED. Pt is homeless, recently at [facility].? Per ED note, pt is known to EMS for psychiatric emergencies and aggressive behaviors. She is currently non-adherent on medications, says she does not like how they make her feel.?Hx of multiple psych admissions. 03/23 patient reports that auditory hallucinations have resolved with medications; she says she slept well. She is disorganized, malodorous and does not open her eyes at all while talking, lying in bed most of the day; denies depression SI or HI. Does not seem to be a clear historian however and collateral will help guide treatment 03/24 patient reports he is in a good mood, sleeping well and denies any AH; wants Risperdal instead of Zyprexa which she has been on before. Patient is more organized, showered today, sitting up and talking with medical underwriter and geriatric social work professor with good eye contact. Patient does not have insight into her recent behaviors behaviors that resulted in her coming to the emergency room, however on the unit she has been calm, pleasant and polite and and overall appropriate. She says she would like discharge and help getting back to [place] where her mother lives. Patient asked for and signed a 3 day notice, filled out on her own without any problems, including the date. 03/25 Remains in good mood, without auditory hallucinations saying they remain resolved. Friendly and polite with appropriate behaviors with peers and staff. Patient agrees to continue with Risperdal and agrees to get a long-acting injectable. Otherwise she would like to discharge Monday with plans to travel. Her mother says this is patient's baseline and that she has been Travel all over the place on her own For years and is able to take care of herself. Patient's plan is to go back [facility] Monday and wait for her disability check; she says she likes the detention and people are friendly there. She sometimes talks about wanting to go to nursing school or medical school and asks for literature regarding these interests and her thought process can intermittently gets circumstantial and pressured; however she is interruptible and able to carry on a linear/goal oriented conversation and is overall with organized behavior and speech. 03/26 remains in good mood, polite, organized speech and behavior; AH remains resolved Plan: Q15 min safety checks, Three day notice continue Risperdal 2 mg q.h.s. (patient has been on before and asked for this med now.) Likely switch to invega sustenna Discontinue Zyprexa (does not want) Patient has history of being on metformin however current hemoglobin A1c 5.7 Monitor response to medications. Monitor for safety in the milieu. Discharge on stabilization. Patient seen. Chart reviewed. Discussed with team. Obtain collateral contact info?as needed I spent minutes with the patient and/or on the patient floor today, greater than?50% of which was spent counseling/coordinating care. Reason for contiued inpatient stay Substantial Risk for: stable for discharge
[2022-03-26 18:00] VITALS: BP 147/76; PULSE 92; RESP 16; TEMP 35.9; O2SAT 99
[2022-03-26] MEDS: risperiDONE 2 MG TABLET PO (19:55)
[2022-03-27] MEDS: polyethylene glycoL 3350 17 GM POWD.PACK PO ×2 (09:13→19:26)
--- NOTE | 2022-03-27 13:25 | P.PNPSI_ITS ---
Subjective Subjective Date of Service: 03/27/22 Reason For Visit: psychotic Interim History: Patient says she is in a good mood and slept well last night. She said she did he have auditory hallucinations last night, saying she heard voices talking outside her door. She described what it was but it was difficult to understand. Periodically will talk about how she has a history of having her ankles cut/feet severed but they are just passing comments and she moves on. However she says she is looking forward to discharging tomorrow. She continues to agree to get the Invega Sustenna. Apparently she has been on Risperdal Consta in the past. Mental Status Exam Mental Status Exam Narrative: Pt is alert and oriented; behavior is cooperative, friendly and calm; patient is not in distress; dressed in hospital attire, neatly styled hair, good hygiene; ; mood is described as good and affect congruent, bright; Speech is normal rate, volume and prosody and not pressured; no psychomotor agitation/retardation present; thought process is goal directed; can also be quite circumstantial. Also concrete; Thought content is on discharge, traveling, plans for future; denies any SI or HI; some AH last night but none today; denies any delusional or paranoid thinking and none solicited; Patients insight and judgment are impaired but adequate and likely at baseline. Diagnostics Vital Signs (24Hr): Vital Signs - 24 hr 03/26/22 18:00 Temperature 96.6 F L Pulse Rate 92 Respiratory Rate 16 Blood Pressure 147/76 H Pulse Oximetry 99 Oxygen Delivery Method Room Air BMI result Body Mass Index 59.5 Labs Results: 03/20/22 14:34 03/20/22 14:34 Medications Medications Current Medications Acetaminophen (Acetaminophen 325 Mg Tablet) 650 mg PO Q6H PRN PRN Reason: Headache/Pain Mild Scale (1-3) Last Admin: 03/26/22 09:33 Dose: 650 mg Al Hydroxide/Mg Hydroxide (Magnesium Hydrox/Alum Hydrox 30 Ml Oral.Susp) 30 ml PO Q6H PRN PRN Reason: Heartburn/Nausea Benztropine Mesylate (Benztropine Mesylate 0.5 Mg Tablet) 0.5 mg PO TID PRN PRN Reason: dystonia/EPS Last Admin: 03/22/22 18:19 Dose: 0.5 mg Diphenhydramine HCl (Diphenhydramine Hcl 25 Mg Tablet) 50 mg PO Q4H PRN PRN Reason: agitation Last Admin: 03/23/22 02:34 Dose: 50 mg Doxycycline Hyclate (Doxycycline Hyclate 100 Mg Tablet) 100 mg PO BID GEN[place]EVA Last Admin: 03/27/22 09:13 Dose: 100 mg Haloperidol (Haloperidol 5 Mg Tablet) 5 mg PO Q4H PRN PRN Reason: agitation Last Admin: 03/23/22 02:34 Dose: 5 mg Hydroxyzine HCl (Hydroxyzine Hcl 25 Mg Tablet) 25 mg PO Q6H PRN PRN Reason: Anxiety Last Admin: 03/23/22 00:25 Dose: 25 mg Ibuprofen (Ibuprofen 600 Mg Tablet) 600 mg PO Q6H PRN PRN Reason: mod-severe pain Lorazepam (Lorazepam 1 Mg Tablet) 2 mg PO Q4H PRN PRN Reason: agitation Last Admin: 03/23/22 02:34 Dose: 2 mg Magnesium Hydroxide (Milk Of Magnesia 30 Ml Oral.Susp) 30 ml PO DAILY PRN PRN Reason: Constipation Last Admin: 03/22/22 20:17 Dose: 30 ml Nicotine Polacrilex (Nicotine Polacrilex 2 Mg Gum) 4 mg BUCCAL Q2H PRN PRN Reason: Nicotine Cravings Polyethylene Glycol (Polyethylene Glycol 3350 17 Gm Powd.Pack) 17 gm PO BID GENOVEVA Last Admin: 03/27/22 09:13 Dose: 17 gm Risperidone (Risperidone 2 Mg Tablet) 2 mg PO BEDTIME [facility] Last Admin: 03/26/22 19:55 Dose: 2 mg Trazodone HCl (Trazodone Hcl 50 Mg Tablet) 50 mg PO BEDTIME PRN PRN Reason: Insomnia Last Admin: 03/23/22 00:25 Dose: 50 mg Allergies Allergies Allergy/AdvReac Type Severity Reaction Status Date / Time No Known Allergies Allergy Verified 03/20/22 14:23 Assessment & Plan Assessment & Plan (1) Schizophrenia, chronic condition: Status: Acute Code(s): F20.9 - Schizophrenia, unspecified Plan Stefania is a 42 y.o. Female who carries a dx of schizophrenia vs. schizoaffective disorder. She presented to [facility] on 03/20/2022 with bizarre affect, acutely psychotic i.e. 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 She was given doxycycline as prophylaxis for STIs, no testing done in ED. Pt is homeless, recently at [facility].? Per ED note, pt is known to EMS for psychiatric emergencies and aggressive behaviors. She is currently non-adherent on medications, says she does not like how they make her feel.?Hx of multiple psych admissions. 03/23 patient reports that auditory hallucinations have resolved with medications; she says she slept well. She is disorganized, malodorous and does not open her eyes at all while talking, lying in bed most of the day; denies depression SI or HI. Does not seem to be a clear historian however and collateral will help guide treatment 03/24 patient reports he is in a good mood, sleeping well and denies any AH; wants Risperdal instead of Zyprexa which she has been on before. Patient is more organized, showered today, sitting up and talking with typewriter assembly and parts inspector and hospice social worker with good eye contact. Patient does not have insight into her recent behaviors behaviors that resulted in her coming to the emergency room, however on the unit she has been calm, pleasant and polite and and overall appropriate. She says she would like discharge and help getting back to [place] where her mother lives. Patient asked for and signed a 3 day notice, filled out on her own without any problems, including the date. 03/25 Remains in good mood, without auditory hallucinations saying they remain resolved. Friendly and polite with appropriate behaviors with peers and staff. Patient agrees to continue with Risperdal and agrees to get a long-acting injectable. Otherwise she would like to discharge Monday with plans to travel. Her mother says this is patient's baseline and that she has been Travel all over the place on her own For years and is able to take care of herself. Patient's plan is [facility] and wait for her disability check; she says she likes the care home and people are friendly there. She sometimes talks about wanting to go to nursing school or medical school and asks for literature regarding these interests and her thought process can intermittently gets circumstantial and pressured; however she is interruptible and able to carry on a linear/goal oriented conversation and is overall with organized behavior and speech. 03/26 remains in good mood, polite, organized speech and behavior; AH remains resolved 03/27 remains good mood, friendly, organized speech and behavior, good hygiene. Wants to discharge tomorrow. AH last night, the 1st since admission, however they did not bother her and she has not had any today. Agrees to Invega Sustenna. [facility]. If she is open will try to schedule appointment for [facility] to get follow- up Invega Sustenna. While patient has some impaired insight, she does not exhibit any dangerous or unsafe behaviors and has remained appropriate with peers and staff throughout her stay on the unit. She is future oriented and has a history of navigating the community on her own, mostly without medication support. While patient has chronic psychotic symptoms and will likely at some point in the future again decompensate and possibly require inpatient admission, she is not in imminent risk for harm to self or others, and typewriter assembly and parts inspector cannot testify that she cannot take care of herself. She does not rise to the level of involuntary commitment and Her request for discharge will be honored. Plan: Q15 min safety checks, Three day notice Start Invega Sustenna 234 mg Q monthly Will DC Risperdal 2 mg q.h.s. (patient has been on before and asked for this med now.) Discontinue Zyprexa (does not want) Patient has history of being on metformin however current hemoglobin A1c 5.7 Monitor response to medications. Monitor for safety in the milieu. Discharge on stabilization. Patient seen. Chart reviewed. Discussed with team. Obtain collateral contact info?as needed I spent minutes with the patient and/or on the patient floor today, greater than?50% of which was spent counseling/coordinating care. Patient educated on: medication risk/benefits Informed Consent: understands and further education needed Reason for contiued inpatient stay Substantial Risk for: stable for discharge
[2022-03-27] MEDS: Paliperidone Palmitate 234 MG/1.5 ML SYRINGE IM (14:43)
[2022-03-27 17:16] VITALS: BP 128/79; PULSE 98; RESP 16; TEMP 36.5; O2SAT 99
[2022-03-27] MEDS: risperiDONE 2 MG TABLET PO (19:25)
[2022-03-27] MEDS: traZODone HCL 50 MG TABLET PO (21:08)
[2022-03-28 06:00] VITALS: BP 127/58; PULSE 83; RESP 18; TEMP 36.7; O2SAT 100
--- NOTE | 2022-03-28 12:24 | PM.PSYDC ---
DS: Providers Provider Date of Service: 03/28/22 Date of admission: 03/22/22 15:13 Date of discharge: 03/28/22 Primary care physician: Unknown Physician Admitting clinician: Camille Gomes Attending physician on discharge: Paul Tompkins DS: Diagnosis Discharge Diagnosis (1) Schizophrenia, chronic condition: Status: Acute DS: Medications Discharge Medications Home Medications: Home Medications Medication Instructions Recorded Confirmed No Known Home Meds 03/20/22 03/20/22 Mental Status Exam Mental Status Exam Narrative: Pt is alert and oriented; behavior is cooperative, friendly and calm; patient is not in distress; dressed in hospital attire, neatly styled hair, good hygiene; ; mood is described as good and affect congruent, bright; Speech is normal rate, volume and prosody and not pressured; no psychomotor agitation/retardation present; thought process is goal directed; can also be quite circumstantial. Also concrete; Thought content is on discharge, traveling, plans for future; denies any SI or HI; some AH last night but none today; denies any delusional or paranoid thinking and none solicited; Patients insight and judgment are impaired but adequate and likely at baseline. Data Data Completed and Pending Completed studies during hospitalization [Text1]: 03/22/22 03/23/22 03/23/22 10:53 08:09 08:09 Estimat Average Glucose 117 Hemoglobin A1c % 5.7 Triglycerides 91 Cholesterol 184 LDL Cholesterol, Calc 103 HDL Cholesterol 63 COVID-19 (DAE) Negative COVID-19 Clin Com See Note DS: Summary Hospital Course Hospital Course: Stefania is a 42 y.o. Female who carries a dx of schizophrenia vs. schizoaffective disorder. She presented to [facility] on 03/20/2022 with bizarre affect, acutely psychotic i.e. 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 She was given doxycycline as prophylaxis for STIs, no testing done in ED. Pt is homeless, recently at [facility].? Per ED note, pt is known to EMS for psychiatric emergencies and aggressive behaviors. She is currently non-adherent on medications, says she does not like how they make her feel.?Hx of multiple psych admissions. 8/10 patient reports that auditory hallucinations have resolved with medications; she says she slept well.? She is disorganized, malodorous and does not open her eyes at all while talking, lying in bed most of the day; denies depression SI or HI.? Does not seem to be a clear historian however and collateral will help guide treatment 03/24 patient reports he is in a good mood, sleeping well and denies any AH; wants Risperdal instead of Zyprexa which she has been on before.? Patient is more organized, showered today, sitting up and talking with group underwriter and delinquency prevention social worker with good eye contact.? Patient does not have insight into her recent behaviors behaviors that resulted in her coming to the emergency room, however on the unit she has been calm, pleasant and polite and and overall appropriate.? She says she would like discharge and help getting back to [place] where her mother lives.? Patient asked for and signed a 3 day notice, filled out on her own without any problems, including the date. 03/25 Remains in good mood, without auditory hallucinations saying they remain resolved.? Friendly and polite with appropriate behaviors with peers and staff. Patient agrees to continue with Risperdal and agrees to get a long-acting injectable.? Otherwise she would like to discharge Monday with plans to travel.? Her mother says this is patient's baseline and that she has been Traveling alll over the place on her own For years and is able to take care of herself.? Patient's plan is to [facility] and wait for her disability check; she says she likes the correction and people are friendly there. She sometimes talks about wanting to go to nursing school or medical school and asks for literature regarding these interests and her thought process can intermittently gets circumstantial and pressured; however she is interruptible and able to carry on a linear/goal oriented conversation and is overall with organized behavior and speech. 03/26 remains in good mood, polite, organized speech and behavior; AH remains resolved 03/27 remains good mood, friendly, organized speech and behavior, good hygiene.? Wants to discharge tomorrow.? AH last night, the 1st time since admission, however she says it did not bother her and she has not had any AH today.? Agrees to Invega Sustenna (and explains she has been on Invega Trinza before).? Her plan [facility].? If she is open will try to schedule appointment for [facility] to get follow-up Invega Mary Janeenna.? Patient remains with impaired insight regarding her psychiatric diagnosis, however she remains willing to continue with medications and has consistently demonstrated good behavioral/impulse control and appropriate behaviors on the unit, without any dangerous or unsafe behaviors.? While patient has chronic psychotic symptoms and will likely at some point in the future again decompensate and possibly require inpatient admission, she is future oriented, on helpful medication, calm and organized and has an established history of navigating the community on her own, mostly without medication support. She is not in imminent risk for harm to self or others, and group underwriter cannot testify that she is unable to take care of herself in the community.? She does not rise to the level of involuntary commitment and Her request for discharge will be honored. Time spent discussing smoking cessation with patient: 3 to 10 minutes Status at Discharge Functional status at discharge: independent ambulation Overall status at discharge: patient is back to baseline Time Spent with Patient Time attestation: Total time spent providing and/or coordinating discharge services: Time spent: Less than 30 minutes Discharge Plan Discharge Patient Disposition: [facility] Discharge Diagnosis: Schizophrenia Referrals: Physician,Unknown J [Primary Care Provider] - 1 Week (N O PCP IN AREA) Discharge Medications: New Invega Sustenna 156 mg/mL syringe 156 mg IM ONCE Qty: 1 0RF Rx Instructions: Give on 03/30/22 Discharge Orders: Discharge Order (Routine); Ordered 03/28/22 Ordered By: Paul Tompkins Diet: Regular diet Activity on Discharge: As tolerated Stand Alone Forms: Patient Portal Discharge page, Community Support Care Plan Goals: Maintain mood and safe behaviors Take medications as prescribed Practice coping skills Continue with outpatient providers and reach out to them as needed Health Concerns: Mood stability and behaviors Plan of Treatment: Follow up with your PCP, psychiatric provider and other outpatient providers regarding above concerns Take medications as prescribed Assessment: Risk assessment at time of discharge:? Patient was interviewed prior to discharge and found to be fully oriented and without any SI or HI. Patient has insight and demonstrates good judgment in terms of wanting to pursue treatment. Patient is not in imminent risk of harm to self or others and has a safety plan that includes presenting to the closest ER or calling 911 if feeling unsafe.? Patient has been observed closely by nursing and unit staff throughout admission; patient has not engaged in any behaviors that suggest dangerousness to self or others and has demonstrated appropriate behaviors and impulse control Discharge Date/Time: 03/28/22 14:33
== END 2022-03-28 14:33 | disposition home or self-care (01) | DRG 885 ==
LOC: HO.ED 03-21 00:13 → HO.PM5 03-22 15:21
PROVIDERS: Physician Assistant; Admitting Provider Psychiatry & Neurology Psychiatry; Emergency Provider Student in an Organized Health Care Education/Training Program; Visit Provider Psychiatry & Neurology Psychiatry
DX: F20.9 Schizophrenia, unspecified (principal); Z20.822 Contact with and (suspected) exposure to COVID-19; Z91.14 Patient's other noncompliance with medication regimen
CPT/HCPCS: 36415; 80053; 80061; 80307; 81003; 81025; 82077; 82248; 82550; 82947; 83036; 83735; 84484; 85025; 87635; 93005; 96372; 99285; J0696; J2426; Q0163